=== PATIENT | female | born 1935 | race Caucasian/White ===

== ENCOUNTER 2017-11-20 11:40 | Observation (INO) ==
[2017-11-20] MEDS ORDERED: Glycopyrrolate Inj 1 MG/5 ML Syringe IV.PUSH ONE (12:00)
[2017-11-20] MEDS ORDERED: Neostigmine Inj 5 MG/5 ML Syringe IV.PUSH ONE (12:00)
[2017-11-20] MEDS ORDERED: Lidocaine PF 1% Inj 5 ML Syringe INFILTRATN ONE (12:00)
[2017-11-20] MEDS ORDERED: Metoprolol Tartrate 25 MG Tablet PO SCH (12:30)
[2017-11-20] MEDS ORDERED: Insulin NovoLIN Regular Correctional Sugar Inj SQ SCH (12:30)
[2017-11-20] MEDS ORDERED: Chlorhexidine Gluconate 2% 1 Pack (2 Cloths) TOPICAL SCH (12:30)
[2017-11-20] MEDS ORDERED: Sodium Chlor 0.9% Inj 500 ML IV.SIG SCH (13:00)
[2017-11-20] MEDS ORDERED: ceFAZolin Inj 2,000 MG in Sodium Chlor 0.9% Inj 100 ML IV.SIG SCH (13:00)
[2017-11-20] MEDS ORDERED: ceFAZolin 2 GM Premix Inj 2 GM/100 ML BAG IV.SIG ONE (13:08)
[2017-11-20] MEDS ORDERED: Dextrose 50% in Water Syringe 50 ML ONE ×2 (13:31→17:00)
[2017-11-20] MEDS ORDERED: Bupivacaine PF 0.5% Inj 30 ML Vial ONE (15:25)
--- NOTE | 2017-11-20 16:26 | XR ---
EXAM DATE: 11/20/2017 4:22 PM EDT AGE/SEX: 82 years / Female INDICATIONS: ORIF left ankle fracture. CLINICAL DATA: This is the patient's initial encounter. Patient reports that signs and symptoms have been present for 1 day and indicates a pain score of Nonresponsive. MEDICAL/SURGICAL HISTORY: Non-responsive. Non-responsive. COMPARISON: No prior exams available for comparison. FINDINGS: Multiple fluoroscopic images of the left ankle demonstrate plate and screw fixation of the lateral ma lleolus. Hardware appears intact and well-positioned. There is near-anatomic alignment. CONCLUSION: 1. Left ankle ORIF, as above. Electronically signed by: Tripp Purdy MD 11/20/2017 4:25 PM EDT
--- NOTE | 2017-11-20 16:52 | P.BOP ---
- Preoperative Diagnosis (1) Fracture of left ankle - Postoperative Diagnosis (1) Fracture of left ankle Date of procedure: 11/20/17 Procedure: 1. ORIF left ankle fracture Supine position. No tourniquet utilized 20mL 0.5% marcaine local block General anesthesia Lateral incision over distal lateral malleolus. Fracture reduced under c-arm guidance. Distal fibular locking plate placed, 6-hole, with proximal 2 screws applied percutaneously under c-arm guidance. Syndesmosis stressed and found to be stable. Fixation and reduction confirmed with c-arm. Irrigation and closure with 3-0 vicryl/2-0 nylon. Short posterior splint applied. Nonweightbearing left in splint Follow up 1 week in clinic Do not change bandage. Keep clean, dry, intact Implants: arthrex distal fibular locking plate/screws Anesthesia: GETA, local (20mL 0.5% marcaine plain) Surgeon: Julianna Nava DPM [employer] Team Member: staff Estimated blood loss (mL): 20 Pathology: none sent Condition: stable Disposition: PACU
[2017-11-20] MEDS ORDERED: fentaNYL Citrate Inj 100 MCG/2 ML Ampul ONE (17:00)
--- NOTE | 2017-11-20 17:27 | XR ---
EXAM DATE: 11/20/2017 5:20 PM EDT AGE/SEX: 82 years / Female INDICATIONS: Post-op left ankle. CLINICAL DATA: This is the patient's initial encounter. Patient reports that signs and symptoms have been present for 1 day and indicates a pain score of Nonresponsive. MEDICAL/SURGICAL HISTORY: None. None. COMPARISON: No prior exams available for comparison. FINDINGS: Status post internal fixation of the distal fibula. There is good alignment and position of the fract ure fragments. The hardware is intact. There is good alignment the mortise joint. CONCLUSION: Good position and alignment on this postoperative study. Electronically signed by: Brent Pelaez MD 11/20/2017 5:25 PM EDT
[2017-11-20] MEDS ORDERED: Acetaminophen 325 MG Tablet PO PRN (19:31)
[2017-11-20] MEDS ORDERED: Bisacodyl 10 MG Supp RECTAL PRN (19:31)
[2017-11-20] MEDS ORDERED: Dextrose 50% in Water 50 ML Vial IV.PUSH PRN (19:32)
[2017-11-20] MEDS: Heparin - SQ 10,000 UNITS/ML Vial SQ SCH (22:04)
[2017-11-20] MEDS: Senna/Docusate Sodium 8.6/50 MG Tablet PO SCH (22:04)
[2017-11-20] MEDS: Insulin NovoLOG Aspart Correctional Sugar Inj SQ SCH (22:45)
--- NOTE | 2017-11-20 22:51 | P.HPIM ---
[facility] Illness [facility] Physician: Dinora Hussein MD Chief Complaint: Left ankle pain History of Present Illness: Mrs. Centeno is an 82 y/o female with a history of DM, hyperlipidemia, arthritis, and left distal fibula fracture that occurred 2 weeks ago when she fell in her doorway who presented to [facility] on 11/20/17 for scheduled ORIF by Dr. Nava as pain was progressively worsening in her left lower extremity. Patient reports severe left ankle pain that is burning in nature and relieved with analgesics. Symptoms are worsened with movement. She reports that she will not be able to walk on d/c due to NWB in LLE and arthritis in RLE. Review of Systems All other systems reviewed negative except as [facility] - History History Provided By: Patient - Medical History Medical History: Medical History (Last Reviewed 11/21/17 @ 02:55 by JULIUS Booker) Uses walker (Acute) Fracture of left ankle (Acute) Hx of diverticulitis of colon (Acute) Neuropathy (Acute) GERD (gastroesophageal reflux disease) (Acute) Wears hearing aid in both ears (Acute) Wears eyeglasses (Acute) Diabetes High cholesterol Hx of fall Hypertension - Surgical History Surgical History: Surgical History (Last Reviewed 11/21/17 @ 02:55 by JULIUS Booker) Hx of cataract removal with insertion of prosthetic lens (Acute) Hx of cholecystectomy (Acute) History of total knee replacement (TKR) (Acute) History of coronary artery stent placement - Family History Family History: Family History (Last Updated 11/21/17 @ 02:56 by JULIUS Booker) Father Heart disease Mother Alzheimer's dementia - Tobacco History Second Hand Smoke Exposure: No Tobacco Use In Past 30 Days: No Smoking Status: Never smoker - Alcohol History How Often Do You Have a Drink Containing Alcohol: Never - Substance Use History Substance History: No History of Abuse - Travel History Recent Travel in the [place] Within the Last 8 Weeks: No Recent Travel Out of the Country Within the Last 8 Weeks: No Medications and Allergies Active Medications: Active Medications Acetaminophen (Tylenol) 650 mg PO Q4H PRN PRN Reason: Temp > 100.4 Al Hydroxide/Mg Hydroxide (Milk Of Magnesia Liq) 30 ml PO Q12H PRN PRN Reason: Mild Constipation Amlodipine Besylate (Norvasc) 5 mg PO DAILY [facility] Atorvastatin Calcium (Lipitor) 40 mg PO DAILY [facility] Bisacodyl (Dulcolax Supp) 10 mg RECTAL DAILY PRN PRN Reason: SEVERE CONSITIPATION Chlorhexidine Gluconate (Chlorhexidine 2% Cloth) 3 pack [employer] [facility] Stop: 11/23/17 12:17 Last Admin: 11/20/17 12:00 Dose: 3 pack Dextrose (D50w Vial) 50 ml IV.PUSH UNSCH PRN PRN Reason: PER HYPOGLYCEMIA PROTOCOL Escitalopram Oxalate (Lexapro) 20 mg PO DAILY [facility] Glucagon (Glucagon Inj) 1 mg OTHER PRN PRN PRN Reason: for Hypoglycemia Protocol Heparin Sodium (Porcine) (Heparin Inj) 5,000 units SQ Q12H [facility] Last Admin: 11/20/17 22:04 Dose: 5,000 units Lactated Ringer's (Lr 1000 Ml Inj) 1,000 mls @ 30 mls/hr IV.SIG .Q24H [facility] Stop: 11/23/17 12:17 Last Admin: 11/20/17 13:00 Dose: 30 mls/hr Sodium Chloride (Ns Inj) 500 mls @ 30 mls/hr IV.SIG .Q10H [facility] Stop: 11/23/17 12:17 Cefazolin Sodium 2,000 mg/ (Sodium Chloride) 120 mls @ 240 mls/hr IV.SIG [employer] [facility] Stop: 11/20/17 23:59 Last Admin: 11/20/17 13:35 Dose: 240 mls/hr Insulin Aspart (Novolog Insulin Correctional Sugar Inj) 0 unit SQ ACHS AND 3AM [facility]; Protocol Last Admin: 11/20/17 22:45 Dose: 3 unit Insulin Human Regular (Novolin R Correctional Sugar Inj) 0 units SQ [employer]TE[employer] [facility] ; Protocol Stop: 11/23/17 12:17 Lactulose (Lactulose Liq) 30 ml PO DAILY PRN PRN Reason: SEVERE CONSITIPATION Metoprolol Succinate (Toprol Xl) 50 mg PO DAILY [facility] Metoprolol Tartrate (Lopressor) 25 mg PO [employer] [facility] Stop: 11/23/17 12:17 Miscellaneous Information ([facility]) 1 each OTHER UNSCH PRN PRN Reason: SEE LABEL COMMENTS Stop: 11/21/17 17:35 Ondansetron HCl (Zofran Inj) 4 mg IV.PUSH Q6H PRN PRN Reason: NAUSEA OR VOMITING Oxycodone/Acetaminophen (Percocet 5/325 Mg) 1 tab PO Q4H PRN PRN Reason: PAIN 1-10 AND/OR FEVER >101F Last Admin: 11/20/17 22:04 Dose: 1 tab Pantoprazole Sodium (Protonix) 40 mg PO DAILY [facility] Povidone Iodine (Betadine 5% Antisepsis Kit) 1 applicatio EACH NARE [employer]TE[employer] [facility] Stop: 11/23/17 12:17 Last Admin: 11/20/17 13:05 Dose: 1 applicatio Senna/Docusate Sodium (Libia-Colace) 1 tab PO BID [facility] Last Admin: 11/20/17 22:04 Dose: 1 tab Sennosides (Senokot) 17.2 mg PO Q12H PRN PRN Reason: Moderate Constipation Allergies Allergy/AdvReac Type Severity Reaction Status Date / Time No Known Allergies Allergy Unverified 11/20/17 13:02 Home Medications Medication Instructions Recorded Confirmed Type amlodipine 5 mg PO DAILY 11/19/17 11/20/17 History atorvastatin 40 mg PO DAILY 11/19/17 11/20/17 History diclofenac sodium 75 mg PO BID 11/19/17 11/20/17 History escitalopram oxalate 20 mg PO DAILY 11/19/17 11/20/17 History hydrocodone-acetaminophen 1 tab PO Q6H PRN 11/19/17 11/20/17 History insulin aspart U-100 [Novolog 28 unit SUB-Q QAM 11/19/17 11/20/17 History U-100 Insulin aspart] insulin degludec [Tresiba 32 unit SUB-Q HS 11/19/17 11/20/17 History FlexTouch U-100] metoprolol succinate 50 mg PO DAILY 11/19/17 11/20/17 History omeprazole 40 mg PO DAILY 11/19/17 11/20/17 History Exam Vital signs: Vital Signs 11/20/17 13:00 11/20/17 16:51 11/20/17 17:00 Temperature 97.6 F 98.3 F Pulse Rate 84 86 75 Respiratory Rate 16 17 14 Blood Pressure 127/71 199/92 H 178/81 H Pulse Oximetry 97 97 99 11/20/17 17:15 11/20/17 17:20 11/20/17 17:30 Temperature Pulse Rate 70 63 Respiratory Rate 16 16 Blood Pressure 161/67 H 161/67 H Pulse Oximetry 98 96 96 11/20/17 17:46 11/20/17 18:00 11/20/17 18:50 Temperature 97.0 F L 98.3 F Pulse Rate 57 L 58 L 59 L Respiratory Rate 16 16 16 Blood Pressure 164/75 H 141/78 H 169/73 H Pulse Oximetry 94 L 92 L 11/20/17 20:30 11/20/17 21:56 Temperature 97.9 F 97.5 F L Pulse Rate 60 65 Respiratory Rate 16 18 Blood Pressure 159/88 H 185/59 H Pulse Oximetry 94 L 93 L Intake & Output 11/20/17 11/20/17 11/21/17 06:59 18:59 06:59 Intake Total 1070 / 1070 Output Total Balance 1050 / 1050 Weight 98.3 kg Intake: Oral 320 / 320 Anesthesia Amount 750 / 750 Output: Estimated Blood Loss Other: Weight On Admission 98.3 kg - Constitutional no acute distress, obese - Routine Respiratory Exam Present: CTA bilaterally. Absent: rhonchi, wheezes, crackles - Routine Cardiovascular Exam Present: RRR, S1, S2. Absent: murmur, gallop, rubs - Routine Abdominal Exam Present: soft, normoactive bowel sounds - Routine Extremities Exam Comments: LLE splinted, able to wiggle toes, sensation intact, good capillary refill. - Routine Skin Exam Present: intact, dry, warm - Routine Neurological Exam Present: alert, oriented X3 Results - Imaging Impressions Ankle X-Ray 11/20/17 00:00 CONCLUSION: 1. Left ankle ORIF, as above. Ankle X-Ray 11/20/17 00:00 CONCLUSION: Good position and alignment on this postoperative study. Caprini VTE Risk Assessment Caprini VTE Risk Assessment: Moderate/High Risk (score >= 2) Caprini Risk Assessment Model: Point Value = 1 Point Value = 2 Point Value = 3 Point Value = 5 Age 41-60 Minor surgery BMI > 25 kg/m2 Swollen legs Varicose veins or History of unexplained or recurrent spontaneous Oral contraceptives or hormone replacement Sepsis (< 1 month) Serious lung disease, including pneumonia (< 1 month) Abnormal pulmonary function Acute myocardial infarction Congestive heart failure (< 1 month) History of inflammatory bowel disease Medical patient at bed rest Age 61-74 Arthroscopic surgery Major open surgery (> 45 min) Laparoscopic surgery (> 45 min) Malignancy Confined to bed (> 72 hours) Immobilizing plaster cast Central venous access Age >= 75 History of VTE Family history of VTE Factor V Leiden Prothrombin [id number] Lupus anticoagulant Anticardiolipin antibodies Elevated serum homocysteine Heparin-induced thrombocytopenia Other congenital or acquired thrombophilia Stroke (< 1 month) Elective arthroplasty Hip, pelvis, or leg fracture Acute spinal cord injury (< 1 month) Prophylaxis Regimen: Total Risk Factor Score Risk Level Prophylaxis Regimen 0-1 Low Early ambulation 2 Moderate Order ONE of the following: *Sequential Compression Device (SCD) *Heparin 5000 units SQ BID 3-4 Higher Order ONE of the following medications: *Heparin 5000 units SQ TID *Enoxaparin/Lovenox 40 mg SQ daily (WT < 150 kg, CrCl > 30 mL/min) *Enoxaparin/Lovenox 30 mg SQ daily (WT < 150 kg, CrCl > 10-29 mL/min) *Enoxaparin/Lovenox 30 mg SQ BID (WT < 150 kg, CrCl > 30 mL/min) AND/OR *Sequential Compression Device (SCD) 5 or more Highest Order ONE of the following medications: *Heparin 5000 units SQ TID (Preferred with Epidurals) *Enoxaparin/Lovenox 40 mg SQ daily (WT < 150 kg, CrCl > 30 mL/min) *Enoxaparin/Lovenox 30 mg SQ daily (WT < 150 kg, CrCl > 10-29 mL/min) *Enoxaparin/Lovenox 30 mg SQ BID (WT < 150 kg, CrCl > 30 mL/min) AND *Sequential Compression Device (SCD) Assessment and Plan - Plan Mrs. Centeno is an 82 y/o female with a history of DM, hyperlipidemia, arthritis, and left distal fibula fracture that occurred 2 weeks ago when she fell in her doorway who presented to [facility] on 11/20/17 for scheduled ORIF by Dr. Nava as pain was progressively worsening in her left lower extremity. Left ankle fracture s/p ORIF - consult physical therapy - consult case management for assistance with discharge planning Diabetes Mellitus - Accuchecks AC and HS with low dose NovoLog sliding scale coverage - monitor trends in blood glucose readings and adjust treatments accordingly - PRN hypoglycemia protocol ordered DVT - SCDs Discussed Condition With: Patient and Dr. Webb H&P: Quality - VTE Deep Vein Thrombosis/Pulmonary Embolism Present on Admission: No
[2017-11-21 04:57] LABS: Baso % (Auto) 0.4 % (0.0-2.0); Eos # (Auto) 0.2 th/mm3 (0.0-0.4); Eos % (Auto) 2.5 % (0.0-4.0); Hematocrit 33.1 % (35.0-46.0); Lymph # (Auto) 2.3 th/mm3 (1.0-4.8); Lymph % (Auto) 23.5 % (9.0-44.0); Mean Corpuscular HGB Conc 33.1 % (32.0-36.0); Mean Corpuscular Hemoglobin 30.8 pg (27.0-34.0); Mean Platelet Volume 9.4 fL (7.0-11.0); Mono # (Auto) 0.7 th/mm3 (0.0-0.9); Mono % (Auto) 7.7 % (0.0-8.0); Neut # (Auto) 6.3 th/mm3 (1.8-7.7); Neut % (Auto) 65.9 % (16.0-70.0); Platelet Count 214 th/mm3 (150-450); Red Blood Count 3.56 mil/mm3 (4.00-5.30); Red Cell Distribution Width 14.1 % (11.6-17.2); White Blood Count 9.6 th/mm3 (4.0-11.0)
[2017-11-21 05:11] LABS: Calcium 9.5 mg/dL (8.5-10.1); Carbon Dioxide 29.5 meq/L (21.0-32.0); Potassium 3.9 meq/L (3.5-5.1)
[2017-11-21] MEDS: Insulin NovoLOG Aspart Correctional Sugar Inj SQ SCH ×5 (06:25→22:00)
[2017-11-21] MEDS: Heparin - SQ 10,000 UNITS/ML Vial SQ SCH ×2 (07:45→21:28)
[2017-11-21] MEDS: amLODIPine 5 MG Tablet PO SCH (08:55)
[2017-11-21] MEDS: Senna/Docusate Sodium 8.6/50 MG Tablet PO SCH ×2 (08:55→21:27)
--- NOTE | 2017-11-21 15:12 | P.PN ---
Subjective Interval history: Follow-up visit for left ankle fracture, status post ORIF, postop day 1 and HTN. Patient seen and examined sitting up in recliner, appears to be in no acute distress. Patient reports she is waiting to go home, states that she is having difficulty ambulating due to the fact that she cannot put weight on her left leg. She denies any fevers, chills, nausea, vomiting, diarrhea, shortness of breath or cough. Patient reports that she has not been able to void today, requesting assistance to get to the toilet. Discussed recommendations from physical therapist for rehab, patient reports that her is building a ramp at home and she would like to go home not to rehab. Physical Exam Vital signs: Vital Signs 11/20/17 16:51 11/20/17 17:00 11/20/17 17:15 Temperature 98.3 F Pulse Rate 86 75 70 Respiratory Rate 17 14 16 Blood Pressure 199/92 H 178/81 H 161/67 H Pulse Oximetry 97 99 98 11/20/17 17:20 11/20/17 17:30 11/20/17 17:46 Temperature Pulse Rate 63 57 L Respiratory Rate 16 16 Blood Pressure 161/67 H 164/75 H Pulse Oximetry 96 96 11/20/17 18:00 11/20/17 18:50 11/20/17 20:30 Temperature 97.0 F L 98.3 F 97.9 F Pulse Rate 58 L 59 L 60 Respiratory Rate 16 16 16 Blood Pressure 141/78 H 169/73 H 159/88 H Pulse Oximetry 94 L 92 L 94 L 11/20/17 21:56 11/21/17 00:00 11/21/17 04:00 Temperature 97.5 F L 97.3 F L 97.2 F L Pulse Rate 65 62 64 Respiratory Rate 18 18 18 Blood Pressure 185/59 H 141/65 H 186/77 H Pulse Oximetry 93 L 93 L 94 L Intake & Output 11/20/17 11/21/17 11/21/17 18:59 06:59 18:59 Intake Total 1070 / 1070 Output Total Balance 1050 / 1050 Weight 98.3 kg 107.6 kg Intake: Oral 320 / 320 Anesthesia Amount 750 / 750 Output: Estimated Blood Loss Other: Weight On Admission 98.3 kg Narrative: GENERAL: Well-nourished, well-developed female in no acute distress. SKIN: Warm and dry. HEAD: Atraumatic. Normocephalic. EYES: Pupils equal and round. No scleral icterus. No injection or drainage. ENT: No nasal bleeding or discharge. Mucous membranes pink and moist. NECK: Trachea midline. No JVD. CARDIOVASCULAR: Regular rate and rhythm. RESPIRATORY: No accessory muscle use. Clear to auscultation. Breath sounds equal bilaterally. GASTROINTESTINAL: Abdomen soft, non-tender, nondistended. Positive bowel sounds. MUSCULOSKELETAL: Extremities without clubbing, cyanosis, or edema. No obvious deformities. Left ankle with Shakeel wrap in place, trace edema to distal foot and toes noted, capillary refill less than 3 seconds,+ movement and sensation. NEUROLOGICAL: Awake and alert oriented 3. No obvious cranial nerve deficits. Motor grossly within normal limits. Normal speech. PSYCHIATRIC: Appropriate mood and affect; insight and judgment normal. Results - Labs CBC & Chem 7: 11/21/17 04:06 11/21/17 04:06 Laboratory Results - last 24 hr 11/20/17 11/20/17 11/20/17 16:55 17:32 18:50 WBC RBC Hgb Hct MCV MCH MCHC RDW Plt Count MPV Neut % (Auto) Lymph % (Auto) [place] % (Auto) Eos % (Auto) Baso % (Auto) Neut # (Auto) Lymph # (Auto) [place] # (Auto) Eos # (Auto) Baso # (Auto) WBC Differential Differential Comment Sodium Potassium Chloride Carbon Dioxide Anion Gap BUN Creatinine Estimated GFR POC Glucose 62 L 124 H 210 H Random Glucose Calcium 11/20/17 11/21/17 11/21/17 22:23 04:06 04:06 WBC 9.6 RBC 3.56 L Hgb 11.0 L Hct 33.1 L MCV 93.0 MCH 30.8 MCHC 33.1 RDW 14.1 Plt Count 214 MPV 9.4 Neut % (Auto) 65.9 Lymph % (Auto) 23.5 [place] % (Auto) 7.7 Eos % (Auto) 2.5 Baso % (Auto) 0.4 Neut # (Auto) 6.3 Lymph # (Auto) 2.3 [place] # (Auto) 0.7 Eos # (Auto) 0.2 Baso # (Auto) 0.0 WBC Differential . Differential Comment Auto diff final Sodium 142 Potassium 3.9 Chloride 105 Carbon Dioxide 29.5 Anion Gap 8 BUN 24 H Creatinine 1.31 H Estimated GFR 39 L POC Glucose 245 H Random Glucose 120 H Calcium 9.5 11/21/17 11/21/17 11/21/17 04:36 08:26 11:46 WBC RBC Hgb Hct MCV MCH MCHC RDW Plt Count MPV Neut % (Auto) Lymph % (Auto) [place] % (Auto) Eos % (Auto) Baso % (Auto) Neut # (Auto) Lymph # (Auto) [place] # (Auto) Eos # (Auto) Baso # (Auto) WBC Differential Differential Comment Sodium Potassium Chloride Carbon Dioxide Anion Gap BUN Creatinine Estimated GFR POC Glucose 123 H 164 H 231 H Random Glucose Calcium - Imaging Impressions Ankle X-Ray 11/20/17 00:00 CONCLUSION: 1. Left ankle ORIF, as above. Ankle X-Ray 11/20/17 00:00 CONCLUSION: Good position and alignment on this postoperative study. Assessment and Plan - Plan Mrs. Centeno is an 82 y/o female with a history of DM, hyperlipidemia, arthritis, and left distal fibula fracture that occurred 2 weeks ago when she fell in her doorway who presented to [facility] on 11/20/17 for scheduled ORIF by Dr. Nava as pain was progressively worsening in her left lower extremity. Left ankle fracture s/p ORIF - consult physical therapy - consult case management for assistance with discharge planning home versus rehab -Pain control with Percocet, bowel regimen Diabetes Mellitus - Accuchecks AC and HS with low dose NovoLog sliding scale coverage -Blood sugars moderately controlled - PRN hypoglycemia protocol ordered Hypertension -Continue home medications, BP moderately controlled PRN clonidine Urinary retention -Encourage voiding, bladder scan and straight cath per protocol DVT - SCDs Discussed Condition With: Discussed with patient, RN, casework manager. Discharge Planning: Patient will need surgical clearance, discharge home versus rehab.
--- NOTE | 2017-11-21 16:24 | P.DIET ---
Nutritional Evaluation Type of nutrition evaluation: initial (Marilyn Screen) Assessment Assessment: Marilyn screen for elective sx on pts 80 and older received. Pt is at 169% of her IBW. On a 1800ADA diet, eating 75% or greater. She is not at high nutritional risk. Consult RD if needed.
--- NOTE | 2017-11-21 22:02 | P.PNPOD ---
Subjective Interval history: s/p ORIF Left ankle fracture 11/20/17 Dr Nava Review of Systems All other systems reviewed negative except as stated in HPI Physical Exam Vital signs: Vital Signs 11/21/17 00:00 11/21/17 04:00 11/21/17 08:00 Temperature 97.3 F L 97.2 F L 99.2 F Pulse Rate 62 64 85 Respiratory Rate 18 18 16 Blood Pressure 141/65 H 186/77 H 174/80 H Pulse Oximetry 93 L 94 L 94 L Intake & Output 11/21/17 11/21/17 11/22/17 06:59 18:59 06:59 Weight 107.6 kg Other: # Voids 1 Narrative: Neurovascularly intact left lower extremity. Splint in place left ankle. Medications and Allergies Active Medications: Active Medications Acetaminophen (Tylenol) 650 mg PO Q4H PRN PRN Reason: Temp > 100.4 Al Hydroxide/Mg Hydroxide (Milk Of Magnemmanuel Liq) 30 ml PO Q12H PRN PRN Reason: Mild Constipation Amlodipine Besylate (Norvasc) 5 mg PO DAILY [facility] Last Admin: 11/21/17 08:55 Dose: 5 mg Atorvastatin Calcium (Lipitor) 40 mg PO DAILY [facility] Last Admin: 11/21/17 08:50 Dose: 40 mg Bisacodyl (Dulcolax Supp) 10 mg RECTAL DAILY PRN PRN Reason: SEVERE CONSITIPATION Chlorhexidine Gluconate (Chlorhexidine 2% Cloth) 3 pack TOPICAL HVAC MANAGER [facility] Stop: 11/23/17 12:17 Last Admin: 11/20/17 12:00 Dose: 3 pack Clonidine HCl (Catapres) 0.1 mg PO Q6H PRN PRN Reason: SBP> 170, DBP> 100; if HR > 60 Dextrose (D50w Vial) 50 ml IV.PUSH UNSCH PRN PRN Reason: PER HYPOGLYCEMIA PROTOCOL Escitalopram Oxalate (Lexapro) 20 mg PO DAILY [facility] Last Admin: 11/21/17 08:55 Dose: 20 mg Glucagon (Glucagon Inj) 1 mg OTHER PRN PRN PRN Reason: for Hypoglycemia Protocol Heparin Sodium (Porcine) (Heparin Inj) 5,000 units SQ Q12H [facility] Last Admin: 11/21/17 21:28 Dose: 5,000 units Lactated Ringer's (Lr 1000 Ml Inj) 1,000 mls @ 30 mls/hr IV.SIG .Q24H [facility] Stop: 11/23/17 12:17 Last Admin: 11/21/17 12:30 Dose: Not Given Sodium Chloride (Ns Inj) 500 mls @ 30 mls/hr IV.SIG .Q10H [facility] Stop: 11/23/17 12:17 Insulin Aspart (Novolog Insulin Correctional Sugar Inj) 0 unit SQ ACHS AND 3AM [facility]; Protocol Last Admin: 11/21/17 17:00 Dose: 5 unit Insulin Human Regular (Novolin R Correctional Sugar Inj) 0 units SQ HVAC MANAGER [facility] ; Protocol Stop: 11/23/17 12:17 Lactulose (Lactulose Liq) 30 ml PO DAILY PRN PRN Reason: SEVERE CONSITIPATION Metoprolol Succinate (Toprol Xl) 50 mg PO DAILY [facility] Last Admin: 11/21/17 08:50 Dose: 50 mg Metoprolol Tartrate (Lopressor) 25 mg PO [employer] MANAGER [facility] Stop: 11/23/17 12:17 Ondansetron HCl (Zofran Inj) 4 mg IV.PUSH Q6H PRN PRN Reason: NAUSEA OR VOMITING Oxycodone/Acetaminophen (Percocet 5/325 Mg) 1 tab PO Q4H PRN PRN Reason: PAIN 1-10 AND/OR FEVER >101F Last Admin: 11/21/17 21:27 Dose: 1 tab Pantoprazole Sodium (Protonix) 40 mg PO DAILY [facility] Last Admin: 11/21/17 08:50 Dose: 40 mg Povidone Iodine (Betadine 5% Antisepsis Kit) 1 applicatio EACH NARE HVAC MANAGER [facility] Stop: 11/23/17 12:17 Last Admin: 11/20/17 13:05 Dose: 1 applicatio Senna/Docusate Sodium (Libia-Colace) 1 tab PO BID [facility] Last Admin: 11/21/17 21:27 Dose: 1 tab Sennosides (Senokot) 17.2 mg PO Q12H PRN PRN Reason: Moderate Constipation Allergies Allergy/AdvReac Type Severity Reaction Status Date / Time No Known Allergies Allergy Unverified 11/20/17 13:02 Home Medications Medication Instructions Recorded Confirmed Type amlodipine 5 mg PO DAILY 11/19/17 11/20/17 History atorvastatin 40 mg PO DAILY 11/19/17 11/20/17 History diclofenac sodium 75 mg PO BID 11/19/17 11/20/17 History escitalopram oxalate 20 mg PO DAILY 11/19/17 11/20/17 History hydrocodone-acetaminophen 1 tab PO Q6H PRN 11/19/17 11/20/17 History insulin aspart U-100 [Novolog 28 unit SUB-Q QAM 11/19/17 11/20/17 History U-100 Insulin aspart] insulin degludec [Tresiba 32 unit SUB-Q HS 11/19/17 11/20/17 History FlexTouch U-100] metoprolol succinate 50 mg PO DAILY 11/19/17 11/20/17 History omeprazole 40 mg PO DAILY 11/19/17 11/20/17 History Results - Labs CBC & Chem 7: 11/21/17 04:06 11/21/17 04:06 Laboratory Results - last 24 hr 11/20/17 11/21/17 11/21/17 22:23 04:06 04:06 WBC 9.6 RBC 3.56 L Hgb 11.0 L Hct 33.1 L MCV 93.0 MCH 30.8 MCHC 33.1 RDW 14.1 Plt Count 214 MPV 9.4 Neut % (Auto) 65.9 Lymph % (Auto) 23.5 [place] % (Auto) 7.7 Eos % (Auto) 2.5 Baso % (Auto) 0.4 Neut # (Auto) 6.3 Lymph # (Auto) 2.3 [place] # (Auto) 0.7 Eos # (Auto) 0.2 Baso # (Auto) 0.0 WBC Differential . Differential Comment Auto diff final Sodium 142 Potassium 3.9 Chloride 105 Carbon Dioxide 29.5 Anion Gap 8 BUN 24 H Creatinine 1.31 H Estimated GFR 39 L POC Glucose 245 H Random Glucose 120 H Calcium 9.5 11/21/17 11/21/17 11/21/17 04:36 08:26 11:46 WBC RBC Hgb Hct MCV MCH MCHC RDW Plt Count MPV Neut % (Auto) Lymph % (Auto) [place] % (Auto) Eos % (Auto) Baso % (Auto) Neut # (Auto) Lymph # (Auto) [place] # (Auto) Eos # (Auto) Baso # (Auto) WBC Differential Differential Comment Sodium Potassium Chloride Carbon Dioxide Anion Gap BUN Creatinine Estimated GFR POC Glucose 123 H 164 H 231 H Random Glucose Calcium 11/21/17 11/21/17 17:22 21:25 WBC RBC Hgb Hct MCV MCH MCHC RDW Plt Count MPV Neut % (Auto) Lymph % (Auto) [place] % (Auto) Eos % (Auto) Baso % (Auto) Neut # (Auto) Lymph # (Auto) [place] # (Auto) Eos # (Auto) Baso # (Auto) WBC Differential Differential Comment Sodium Potassium Chloride Carbon Dioxide Anion Gap BUN Creatinine Estimated GFR POC Glucose 260 H 266 H Random Glucose Calcium - Imaging XR L ankle shows reduced fracture and fixation in place. Assessment and Plan - Assessment (1) Fracture of left ankle Code(s): S82.892A - Other fracture of left lower leg, initial encounter for closed fracture Status: Acute Plan: Recommend rehab placement upon discharge, [place] 9th floor, if possible. Discussed with patient and she is agreeable to rehab. Continue strict nonweightbearing, DVT prophylaxis, and pain control. Plan to change bandage in 1 week Keep splint clean, dry, intact.
[2017-11-22] MEDS: Insulin NovoLOG Aspart Correctional Sugar Inj SQ SCH ×5 (03:23→21:04)
[2017-11-22] MEDS: Senna/Docusate Sodium 8.6/50 MG Tablet PO SCH ×2 (09:40→20:48)
[2017-11-22] MEDS: amLODIPine 5 MG Tablet PO SCH (09:40)
[2017-11-22] MEDS: Heparin - SQ 10,000 UNITS/ML Vial SQ SCH ×2 (09:40→20:49)
--- NOTE | 2017-11-22 10:05 | P.PN ---
Subjective Interval history: Follow-up visit for left ankle fracture, status post ORIF and HTN. Patient is seen and examined resting in bed comfortably, appears to be in no acute distress. She denies any fevers, chills, nausea, vomiting, diarrhea, cough, shortness of breath or chest pain. Patient reports some left ankle pain, does not remember when his last time she had pain medication for this. She also reports that she is voiding without any dysuria or discomfort. Physical Exam Vital signs: Vital Signs 11/21/17 20:00 11/22/17 00:00 11/22/17 04:00 Temperature 99 F 99.0 F 98.5 F Pulse Rate 86 77 74 Respiratory Rate 16 18 18 Blood Pressure 169/71 H 181/79 H 178/75 H Pulse Oximetry 95 94 L 94 L 11/22/17 08:00 Temperature 98.2 F Pulse Rate 67 Respiratory Rate 12 Blood Pressure 181/81 H Pulse Oximetry 90 L Intake & Output 11/21/17 11/22/17 11/22/17 18:59 06:59 18:59 Intake Total 240 / 240 Balance 240 / 240 Weight 105.2 kg Intake: Oral 240 / 240 Other: # Voids 1 0 Narrative: GENERAL: Well-nourished, well-developed female in no acute distress. SKIN: Warm and dry. HEAD: Atraumatic. EYES: Pupils equal and round. No injection or drainage. ENT: No nasal bleeding or discharge. Mucous membranes pink and moist. NECK: Trachea midline. No JVD. CARDIOVASCULAR: Regular rate and rhythm. RESPIRATORY: No accessory muscle use. Clear to auscultation. Breath sounds equal bilaterally. GASTROINTESTINAL: Abdomen soft, non-tender, nondistended. Positive bowel sounds. MUSCULOSKELETAL: Extremities without clubbing, cyanosis, or edema. No obvious deformities. Left ankle with Shakeel wrap in place, trace edema to distal foot and toes noted, capillary refill less than 3 seconds,+ movement and sensation. NEUROLOGICAL: Awake and alert oriented 3. No obvious cranial nerve deficits. Motor grossly within normal limits. Normal speech. PSYCHIATRIC: Appropriate mood and affect; insight and judgment normal. Results - Labs CBC & Chem 7: 11/21/17 04:06 11/21/17 04:06 Laboratory Results - last 24 hr 11/21/17 11/21/17 11/21/17 11:46 17:22 21:25 POC Glucose 231 H 260 H 266 H 11/22/17 11/22/17 03:19 06:14 POC Glucose 270 H 171 H Assessment and Plan - Plan Mrs. Centeno is an 82 y/o female with a history of DM, hyperlipidemia, arthritis, and left distal fibula fracture that occurred 2 weeks ago when she fell in her doorway who presented to [facility] on 11/20/17 for scheduled ORIF by Dr. Nava as pain was progressively worsening in her left lower extremity. Left ankle fracture s/p ORIF - consult physical therapy - consult case management for assistance with discharge planning. -Pain control with Percocet, bowel regimen Diabetes Mellitus - Accuchecks AC and HS with low dose NovoLog sliding scale coverage -Blood sugars moderately controlled - PRN hypoglycemia protocol ordered Hypertension -BP continues to be elevated, increase Norvasc to 10mg dialy PRN clonidine Urinary retention -Encourage voiding, bladder scan and straight cath per protocol DVT - SCDs Discussed Condition With: Patient, RN, family, CM Discharge Planning: Case management to assist with discharge to [facility] versus [facility] rehab
[2017-11-22] MEDS: amLODIPine 10 MG Tablet PO SCH (11:59)
--- NOTE | 2017-11-22 13:09 | P.PNPOD ---
Physical Exam Vital signs: Vital Signs 11/21/17 20:00 11/22/17 00:00 11/22/17 04:00 Temperature 99 F 99.0 F 98.5 F Pulse Rate 86 77 74 Respiratory Rate 16 18 18 Blood Pressure 169/71 H 181/79 H 178/75 H Pulse Oximetry 95 94 L 94 L 11/22/17 08:00 11/22/17 12:00 Temperature 98.2 F 98 F Pulse Rate 67 62 Respiratory Rate 12 13 Blood Pressure 181/81 H 147/63 H Pulse Oximetry 90 L 98 Intake & Output 11/21/17 11/22/17 11/22/17 18:59 06:59 18:59 Intake Total 240 / 240 Balance 240 / 240 Weight 105.2 kg Intake: Oral 240 / 240 Other: # Voids 1 0 Narrative: splint/dressing clean, dry, intact left foot/ankle. neurovascularly intact LLE Medications and Allergies Active Medications: Active Medications Acetaminophen (Tylenol) 650 mg PO Q4H PRN PRN Reason: Temp > 100.4 Last Admin: 11/22/17 09:39 Dose: 650 mg Al Hydroxide/Mg Hydroxide (Milk Of Magnemmanuel Liq) 30 ml PO Q12H PRN PRN Reason: Mild Constipation Amlodipine Besylate (Norvasc) 10 mg PO DAILY [facility] Last Admin: 11/22/17 11:59 Dose: 10 mg Atorvastatin Calcium (Lipitor) 40 mg PO DAILY [facility] Last Admin: 11/22/17 09:40 Dose: 40 mg Bisacodyl (Dulcolax Supp) 10 mg RECTAL DAILY PRN PRN Reason: SEVERE CONSITIPATION Chlorhexidine Gluconate (Chlorhexidine 2% Cloth) 3 pack TOPICAL RECORDING ARTIST [facility] Stop: 11/23/17 12:17 Last Admin: 11/20/17 12:00 Dose: 3 pack Clonidine HCl (Catapres) 0.1 mg PO Q6H PRN PRN Reason: SBP> 170, DBP> 100; if HR > 60 Last Admin: 11/22/17 02:07 Dose: 0.1 mg Dextrose (D50w Vial) 50 ml IV.PUSH UNSCH PRN PRN Reason: PER HYPOGLYCEMIA PROTOCOL Escitalopram Oxalate (Lexapro) 20 mg PO DAILY [facility] Last Admin: 11/22/17 09:40 Dose: 20 mg Glucagon (Glucagon Inj) 1 mg OTHER PRN PRN PRN Reason: for Hypoglycemia Protocol Heparin Sodium (Porcine) (Heparin Inj) 5,000 units SQ Q12H [facility] Last Admin: 11/22/17 09:40 Dose: 5,000 units Lactated Ringer's (Lr 1000 Ml Inj) 1,000 mls @ 30 mls/hr IV.SIG .Q24H [facility] Stop: 11/23/17 12:17 Last Infusion: 11/22/17 08:07 Dose: 30 mls/hr Sodium Chloride (Ns Inj) 500 mls @ 30 mls/hr IV.SIG .Q10H [facility] Stop: 11/23/17 12:17 Insulin Aspart (Novolog Insulin Correctional Sugar Inj) 0 unit SQ ACHS AND 3AM [facility]; Protocol Last Admin: 11/22/17 11:59 Dose: 9 unit Insulin Human Regular (Novolin R Correctional Sugar Inj) 0 units SQ RECORDING ARTIST [facility] ; Protocol Stop: 11/23/17 12:17 Lactulose (Lactulose Liq) 30 ml PO DAILY PRN PRN Reason: SEVERE CONSITIPATION Metoprolol Succinate (Toprol Xl) 50 mg PO DAILY [facility] Last Admin: 11/22/17 09:40 Dose: 50 mg Metoprolol Tartrate (Lopressor) 25 mg PO RECORDING ARTIST [facility] Stop: 11/23/17 12:17 Ondansetron HCl (Zofran Inj) 4 mg IV.PUSH Q6H PRN PRN Reason: NAUSEA OR VOMITING Oxycodone/Acetaminophen (Percocet 5/325 Mg) 1 tab PO Q4H PRN PRN Reason: PAIN 1-10 AND/OR FEVER >101F Last Admin: 11/21/17 21:27 Dose: 1 tab Pantoprazole Sodium (Protonix) 40 mg PO DAILY [facility] Last Admin: 11/22/17 09:40 Dose: 40 mg Povidone Iodine (Betadine 5% Antisepsis Kit) 1 applicatio EACH NARE RECORDING ARTIST [facility] Stop: 11/23/17 12:17 Last Admin: 11/20/17 13:05 Dose: 1 applicatio Senna/Docusate Sodium (Libia-Colace) 1 tab PO BID [facility] Last Admin: 11/22/17 09:40 Dose: 1 tab Sennosides (Senokot) 17.2 mg PO Q12H PRN PRN Reason: Moderate Constipation Allergies Allergy/AdvReac Type Severity Reaction Status Date / Time No Known Allergies Allergy Unverified 11/20/17 13:02 Home Medications Medication Instructions Recorded Confirmed Type amlodipine 5 mg PO DAILY 11/19/17 11/20/17 History atorvastatin 40 mg PO DAILY 11/19/17 11/20/17 History diclofenac sodium 75 mg PO BID 11/19/17 11/20/17 History escitalopram oxalate 20 mg PO DAILY 11/19/17 11/20/17 History hydrocodone-acetaminophen 1 tab PO Q6H PRN 11/19/17 11/20/17 History insulin aspart U-100 [Novolog 28 unit SUB-Q QAM 11/19/17 11/20/17 History U-100 Insulin aspart] insulin degludec [Tresiba 32 unit SUB-Q HS 11/19/17 11/20/17 History FlexTouch U-100] metoprolol succinate 50 mg PO DAILY 11/19/17 11/20/17 History omeprazole 40 mg PO DAILY 11/19/17 11/20/17 History Results - Labs CBC & Chem 7: 11/21/17 04:06 11/21/17 04:06 Laboratory Results - last 24 hr 11/21/17 11/21/17 11/22/17 17:22 21:25 03:19 POC Glucose 260 H 266 H 270 H 11/22/17 11/22/17 06:14 11:56 POC Glucose 171 H 369 H Assessment and Plan - Assessment (1) Fracture of left ankle Code(s): S82.892A - Other fracture of left lower leg, initial encounter for closed fracture Status: Acute Plan: Recommend rehab placement upon discharge Possibly to [facility] today. If still here tomorrow, will change bandage before d/ c. If not, ok to discharge and keep splint/dressing clean, dry, intact and will have patient come in to office later next week for dressing change. Dressing does not need to be changed in rehab Continue strict nonweightbearing, DVT prophylaxis, and pain control. Keep splint clean, dry, intact.
--- NOTE | 2017-11-22 17:42 | ECG ---
Date Performed: 11/20/2017 Time Performed: 12:25:22 PTAGE: 82 years EKG: Sinus rhythm WITH FIRST DEGREE AV BLOCK POSSIBLE INFERIOR MYOCARDIAL INFARCTION , PROBABLY OLD ABNORMAL ECG PREVIOUS TRACING : 04/12/2005 05.50 DOCTOR: Marquita Leblanc Interpretating Date/Time 11/22/2017 17:36:31
--- NOTE | 2017-11-22 18:20 | MP ---
cc: Julianna Nava TAMMY DATE OF OPERATION: 11/20/2017 INDICATIONS: The patient presented to my clinic after referral from her primary care doctor complaining of a left ankle pain. She was noted to have a fracture of the lateral malleolus and was referred to me for consultation. She had fallen and misstepped over a step the week prior and had significant pain and was unable to bear weight. She had been in severe pain and was found to have a displaced lateral malleolar fracture. I discussed with the patient the risks, benefits, and potential complications of surgery, and she agreed to move forward with open reduction with internal fixation of left ankle fracture. She was then seen in preop holding by myself, nursing staff, and anesthesia, where the correct patient, side, and site were all confirmed to be correct and the left ankle. She was then prepped and draped in normal sterile fashion. After timeouts were performed per facility protocol, attention was directed to the left lower extremity, was prepped and draped, followed by attention directed to the lateral aspect of the lateral malleolus centrally. C-arm was utilized in order to localize the fracture, and a small incision was made laterally over the distal aspect of the lateral malleolus using C-arm guidance. The tissue was freed very carefully, and the distal fibula locking plate was placed with 6 holes and was slid up under the periosteum alongside the distal fibula. Using C-arm guidance, screws were applied percutaneously through the distal 2 screws, and plate and screw fixation was placed after the fracture was reduced using C-arm guidance. Following placement of stable fixation, the syndesmosis was stressed under fluoroscopy and found to be stable. Final images were taken, confirming adequate fixation and reduction of the fracture with C-arm, followed by irrigation and closure with 3-0 Vicryl and 2-0 nylon suture, followed by application of a short posterior splint. The patient tolerated the procedure and anesthesia well without complications and was taken back to PACU with vital signs stable and vascular status intact to the left lower extremity. She will be nonweightbearing to the left lower extremity in splint and follow up in 1 week in clinic for a dressing change. She was noted to be in PACU to have difficulty ambulating and was admitted to observation while awaiting placement in a rehabilitation facility in order to be able to comply with nonweightbearing, and so she will follow up with me in 1 week and stay in rehabilitation for 2-3 weeks until sutures are removed most likely or until she gains the strength enough to be able to comply with nonweightbearing. SHORT OPERATIVE NOTE SURGEON: Julianna Nava DPM ENGRAVER JEWELRY: Staff. PREOPERATIVE DIAGNOSIS: Left ankle fracture. POSTOPERATIVE DIAGNOSIS: Left ankle fracture. PROCEDURE PERFORMED: Open reduction with internal fixation, left ankle fracture. PROPHYLAXIS: IV Ancef 2 g preoperatively. ESTIMATED BLOOD LOSS: Minimal, 20 mL. ANESTHESIA: General endotracheal anesthesia plus local block consisting of 20 mL of 0.5% Marcaine plain. HEMOSTASIS: No tourniquet utilized. COMPLICATIONS: None. CONDITION: Stable to PACU. DISPOSITION: Nonweightbearing. Left lower extremity in splint. To keep clean, dry and intact. To follow up in clinic in 1 week. TAMMY Delvalle/germaine , 05:01 PM , 05:08 PM
[2017-11-23] MEDS: Insulin NovoLOG Aspart Correctional Sugar Inj SQ SCH ×5 (04:04→20:28)
[2017-11-23] MEDS: Heparin - SQ 10,000 UNITS/ML Vial SQ SCH ×2 (08:01→19:22)
[2017-11-23] MEDS: Senna/Docusate Sodium 8.6/50 MG Tablet PO SCH ×2 (09:31→20:30)
[2017-11-23] MEDS: amLODIPine 10 MG Tablet PO SCH (09:31)
--- NOTE | 2017-11-23 10:53 | P.PN ---
Subjective Interval history: Follow-up visit for left ankle fracture, status post ORIF and HTN. Patient is seen and examined sitting up in chair and in no acute distress. She denies any fevers, chills, nausea, vomiting, diarrhea, cough, shortness of breath or chest pain. She voices no acute concerns or complaints at the moment. Physical Exam Vital signs: Vital Signs 11/22/17 12:00 11/22/17 16:00 11/22/17 20:00 Temperature 98 F 97.4 F L 98.2 F Pulse Rate 62 52 L 62 Respiratory Rate 13 13 16 Blood Pressure 147/63 H 163/70 H 150/67 H Pulse Oximetry 98 95 95 11/23/17 00:00 11/23/17 04:00 11/23/17 06:40 Temperature 98.3 F 98.0 F Pulse Rate 63 60 Respiratory Rate 17 17 17 Blood Pressure 135/68 138/70 Pulse Oximetry 94 L 94 L 11/23/17 08:00 Temperature 98.4 F Pulse Rate 64 Respiratory Rate 19 Blood Pressure 171/74 H Pulse Oximetry 92 L Intake & Output 11/22/17 11/23/17 11/23/17 18:59 06:59 18:59 Intake Total 400 / 400 Balance 400 / 400 Weight 105 kg Intake: Oral 400 / 400 Other: # Voids 2 2 Date of Last Bowel Movement 11/21/17 # Bowel Movements 0 Narrative: GENERAL: Well-nourished, well-developed female in no acute distress. SKIN: Warm and dry. HEAD: Atraumatic. EYES: Pupils equal and round. No injection or drainage. ENT: No nasal bleeding or discharge. Mucous membranes pink and moist. NECK: Trachea midline. CARDIOVASCULAR: Regular rate and rhythm. RESPIRATORY: No accessory muscle use. Clear to auscultation. Breath sounds equal bilaterally. GASTROINTESTINAL: Abdomen soft, non-tender, nondistended. Positive bowel sounds. MUSCULOSKELETAL: Extremities without clubbing, cyanosis, or edema. No obvious deformities. Left ankle with Shakeel wrap in place, trace edema to distal foot and toes noted, capillary refill less than 3 seconds,+ movement and sensation. NEUROLOGICAL: Awake and alert oriented 3. No obvious cranial nerve deficits. Motor grossly within normal limits. Normal speech. PSYCHIATRIC: Appropriate mood and affect; insight and judgment normal. Results - Labs CBC & Chem 7: 11/21/17 04:06 11/21/17 04:06 Laboratory Results - last 24 hr 11/22/17 11/22/17 11/22/17 11:56 17:46 19:59 POC Glucose 369 H 195 H 208 H 11/23/17 11/23/17 03:57 07:47 POC Glucose 186 H 188 H Assessment and Plan - Plan Mrs. Centeno is an 82 y/o female with a history of DM, hyperlipidemia, arthritis, and left distal fibula fracture that occurred 2 weeks ago when she fell in her doorway who presented to [facility] on 11/20/17 for scheduled ORIF by Dr. Nava as pain was progressively worsening in her left lower extremity. Left ankle fracture s/p ORIF - consult physical therapy - consult case management for assistance with discharge planning. -Pain control with Percocet, bowel regimen Diabetes Mellitus - Accuchecks AC and HS with low dose NovoLog sliding scale coverage -Blood sugars elevated, start Levemir - PRN hypoglycemia protocol ordered Hypertension -BP continues to be elevated, continue Norvasc 10 mg daily, metoprolol, add hydralazine 10 mg 3 times daily PRN clonidine DVT - SCDs Discussed Condition With: Patient and operations support specialist Planning: Case management to assist with discharge to [facility] rehab
[2017-11-23 12:19] VITALS: RESP 18
--- NOTE | 2017-11-23 13:38 | P.PNPOD ---
Physical Exam Vital signs: Vital Signs 11/22/17 16:00 11/22/17 20:00 11/23/17 00:00 Temperature 97.4 F L 98.2 F 98.3 F Pulse Rate 52 L 62 63 Respiratory Rate 13 16 17 Blood Pressure 163/70 H 150/67 H 135/68 Pulse Oximetry 95 95 94 L 11/23/17 04:00 11/23/17 06:40 11/23/17 08:00 Temperature 98.0 F 98.4 F Pulse Rate 60 64 Respiratory Rate 17 17 19 Blood Pressure 138/70 171/74 H Pulse Oximetry 94 L 92 L 11/23/17 12:00 Temperature 98.0 F Pulse Rate 64 Respiratory Rate 18 Blood Pressure 151/68 H Pulse Oximetry 99 Intake & Output 11/22/17 11/23/17 11/23/17 18:59 06:59 18:59 Intake Total 400 / 400 Balance 400 / 400 Weight 105 kg Intake: Oral 400 / 400 Other: # Voids 2 2 Date of Last Bowel Movement 11/21/17 # Bowel Movements 0 Medications and Allergies Active Medications: Active Medications Acetaminophen (Tylenol) 650 mg PO Q4H PRN PRN Reason: Temp > 100.4 Last Admin: 11/22/17 09:39 Dose: 650 mg Al Hydroxide/Mg Hydroxide (Milk Of Magnesia Liq) 30 ml PO Q12H PRN PRN Reason: Mild Constipation Amlodipine Besylate (Norvasc) 10 mg PO DAILY [facility] Last Admin: 11/23/17 09:31 Dose: 10 mg Atorvastatin Calcium (Lipitor) 40 mg PO DAILY [facility] Last Admin: 11/23/17 09:31 Dose: 40 mg Bisacodyl (Dulcolax Supp) 10 mg RECTAL DAILY PRN PRN Reason: SEVERE CONSITIPATION Clonidine HCl (Catapres) 0.1 mg PO Q6H PRN PRN Reason: SBP> 170, DBP> 100; if HR > 60 Last Admin: 11/22/17 02:07 Dose: 0.1 mg Dextrose (D50w Vial) 50 ml IV.PUSH UNSCH PRN PRN Reason: PER HYPOGLYCEMIA PROTOCOL Escitalopram Oxalate (Lexapro) 20 mg PO DAILY [facility] Last Admin: 11/23/17 09:31 Dose: 20 mg Glucagon (Glucagon Inj) 1 mg OTHER PRN PRN PRN Reason: for Hypoglycemia Protocol Heparin Sodium (Porcine) (Heparin Inj) 5,000 units SQ Q12H [facility] Last Admin: 11/23/17 08:01 Dose: 5,000 units Insulin Aspart (Novolog Insulin Correctional Sugar Inj) 0 unit SQ ACHS AND 3AM JALEEL; Protocol Last Admin: 11/23/17 09:30 Dose: 2 unit Lactulose (Lactulose Liq) 30 ml PO DAILY PRN PRN Reason: SEVERE CONSITIPATION Metoprolol Succinate (Toprol Xl) 50 mg PO DAILY [facility] Last Admin: 11/23/17 09:31 Dose: 50 mg Ondansetron HCl (Zofran Inj) 4 mg IV.PUSH Q6H PRN PRN Reason: NAUSEA OR VOMITING Oxycodone/Acetaminophen (Percocet 5/325 Mg) 1 tab PO Q4H PRN PRN Reason: PAIN 1-10 AND/OR FEVER >101F Last Admin: 11/22/17 20:48 Dose: 1 tab Pantoprazole Sodium (Protonix) 40 mg PO DAILY [facility] Last Admin: 11/23/17 09:31 Dose: 40 mg Senna/Docusate Sodium (Libia-Colace) 1 tab PO BID [facility] Last Admin: 11/23/17 09:31 Dose: 1 tab Sennosides (Senokot) 17.2 mg PO Q12H PRN PRN Reason: Moderate Constipation Allergies Allergy/AdvReac Type Severity Reaction Status Date / Time No Known Allergies Allergy Unverified 11/20/17 13:02 Home Medications Medication Instructions Recorded Confirmed Type amlodipine 5 mg PO DAILY 11/19/17 11/20/17 History atorvastatin 40 mg PO DAILY 11/19/17 11/20/17 History diclofenac sodium 75 mg PO BID 11/19/17 11/20/17 History escitalopram oxalate 20 mg PO DAILY 11/19/17 11/20/17 History hydrocodone-acetaminophen 1 tab PO Q6H PRN 11/19/17 11/20/17 History insulin aspart U-100 [Novolog 28 unit SUB-Q QAM 11/19/17 11/20/17 History U-100 Insulin aspart] insulin degludec [Tresiba 32 unit SUB-Q HS 11/19/17 11/20/17 History FlexTouch U-100] metoprolol succinate 50 mg PO DAILY 11/19/17 11/20/17 History omeprazole 40 mg PO DAILY 11/19/17 11/20/17 History Results - Labs CBC & Chem 7: 11/21/17 04:06 11/21/17 04:06 Laboratory Results - last 24 hr 11/22/17 11/22/17 11/23/17 17:46 19:59 03:57 POC Glucose 195 H 208 H 186 H 11/23/17 11/23/17 07:47 12:45 POC Glucose 188 H 205 H Assessment and Plan - Assessment (1) Fracture of left ankle Code(s): S82.892A - Other fracture of left lower leg, initial encounter for closed fracture Status: Acute Plan: Recommend rehab placement upon discharge Patient will get appointment for later this week for dressing change. Continue strict nonweightbearing, DVT prophylaxis, and pain control. Keep splint clean, dry, intact.
[2017-11-23] MEDS: hydrALAZINE 10 MG Tablet PO SCH (18:06)
[2017-11-23] MEDS: Insulin Detemir Inj 1,000 UNIT/10 ML Vial SQ SCH (20:28)
[2017-11-24] MEDS: Insulin NovoLOG Aspart Correctional Sugar Inj SQ SCH ×4 (04:15→17:45)
[2017-11-24] MEDS: amLODIPine 10 MG Tablet PO SCH (09:10)
[2017-11-24] MEDS: hydrALAZINE 10 MG Tablet PO SCH ×3 (09:11→17:45)
[2017-11-24] MEDS: Heparin - SQ 10,000 UNITS/ML Vial SQ SCH (09:11)
[2017-11-24] MEDS: Senna/Docusate Sodium 8.6/50 MG Tablet PO SCH (09:11)
--- NOTE | 2017-11-24 09:19 | P.PN ---
Subjective Interval history: Follow-up visit for left ankle fracture, status post ORIF and HTN. Patient seen and examined resting in bed comfortably in no acute distress. She denies any fevers, chills, nausea, vomiting, diarrhea, cough, shortness of breath or chest pain. She denies any dysuria, endorses constipation, denies abdominal pain or discomfort. Right ankle pain is tolerable, pain medication does help with relief. Physical Exam Vital signs: Vital Signs 11/23/17 12:00 11/23/17 14:53 11/23/17 20:00 Temperature 98.0 F 98.3 F 98.3 F Pulse Rate 64 70 66 Respiratory Rate 18 18 18 Blood Pressure 151/68 H 160/69 H 198/81 H Pulse Oximetry 99 95 96 11/24/17 00:00 11/24/17 08:00 Temperature 98.8 F 98.2 F Pulse Rate 54 L 58 L Respiratory Rate 18 18 Blood Pressure 132/63 143/65 H Pulse Oximetry 93 L 93 L Intake & Output 11/23/17 11/24/17 11/24/17 18:59 06:59 18:59 Intake Total 840 / 840 Balance 840 / 840 Weight 105 kg Intake: Oral 840 / 840 Other: # Voids 1 2 Date of Last Bowel Movement 11/21/17 11/23/17 Narrative: GENERAL: Well-nourished, well-developed female in no acute distress. SKIN: Warm and dry. HEAD: Atraumatic. EYES: Pupils equal and round. No injection or drainage. ENT: No nasal bleeding or discharge. Mucous membranes pink and moist. NECK: Trachea midline. CARDIOVASCULAR: Regular rate and rhythm. RESPIRATORY: No accessory muscle use. Clear to auscultation. Breath sounds equal bilaterally. GASTROINTESTINAL: Abdomen soft, non-tender, nondistended. Positive bowel sounds. MUSCULOSKELETAL: Extremities without clubbing, cyanosis, or edema. No obvious deformities. Left ankle with Shakeel wrap in place, trace edema to distal foot and toes noted, capillary refill less than 3 seconds,+ movement and sensation. NEUROLOGICAL: Awake and alert oriented 3. No obvious cranial nerve deficits. Motor grossly within normal limits. Normal speech. PSYCHIATRIC: Appropriate mood and affect; insight and judgment normal. Results - Labs CBC & Chem 7: 11/21/17 04:06 11/21/17 04:06 Laboratory Results - last 24 hr 11/23/17 11/23/17 11/23/17 12:45 16:54 20:10 POC Glucose 205 H 201 H 221 H 11/24/17 11/24/17 04:08 08:16 POC Glucose 191 H 160 H Assessment and Plan - Plan Mrs. Centeno is an 82 y/o female with a history of DM, hyperlipidemia, arthritis, and left distal fibula fracture that occurred 2 weeks ago when she fell in her doorway who presented to [facility] on 11/20/17 for scheduled ORIF by Dr. Nava as pain was progressively worsening in her left lower extremity. Left ankle fracture s/p ORIF - consult physical therapy - consult case management for assistance with discharge planning. -Pain control with Percocet, bowel regimen. Lactulose today to help with BM. Diabetes Mellitus - Accuchecks AC and HS with low dose NovoLog sliding scale coverage - Levemir 15 units twice daily -Blood sugars with improvement this morning. - PRN hypoglycemia protocol ordered Hypertension -Norvasc 10 mg daily, metoprolol, add hydralazine 10 mg 3 times daily -BP improved overnight and this morning. PRN clonidine DVT - SCDs Discussed Condition With: Patient, RN, case preparer and liner. Discharge Planning: Case management to assist with discharge to [facility] versus [facility] rehab, pending approval.
[2017-11-24] MEDS: Insulin Detemir Inj 1,000 UNIT/10 ML Vial SQ SCH (12:43)
[2017-11-24 16:22] VITALS: BP 147/67; PULSE 67; TEMP 98; O2SAT 93
--- NOTE | 2017-11-24 16:36 | P.DS ---
Date of admission: 11/20/17 20:42 Primary care physician: Dinora Hussein MD Brief History from admission: Mrs. Centeno is an 82 y/o female with a history of DM, hyperlipidemia, arthritis, and left distal fibula fracture that occurred 2 weeks ago when she fell in her doorway who presented to [facility] on 11/20/17 for scheduled ORIF by Dr. Nava as pain was progressively worsening in her left lower extremity. Patient reports severe left ankle pain that is burning in nature and relieved with analgesics. Symptoms are worsened with movement. She reports that she will not be able to walk on d/c due to NWB in LLE and arthritis in RLE. DS: Medications - Discharge Medications Prescriptions: amlodipine [Norvasc] 10 mg PO DAILY #30 tab hydrocodone-acetaminophen 1 tab PO Q6H PRN #12 tab PRN Reason: Pain 2-10 insulin aspart U-100 [Novolog U-100 Insulin aspart] 0 unit SUB-Q ACHS AND 3AM # 15 ml insulin detemir U-100 [Levemir U-100 Insulin] 15 unit SUB-Q BID #15 ml DS: Summary Hospital Course: 82 y/o female with a history of DM, hyperlipidemia, arthritis, and left distal fibula fracture who presented to [facility] on 11/20/17 for scheduled ORIF by Dr. Nava. Underwent open reduction and internal fixation of left ankle fracture on 11/22. Following surgery patient was seen and evaluated by physical therapy who recommended physical therapy at rehab center. During her hospitalization her blood pressure medications were adjusted due to hypertension. Patient has been cleared by podiatry standpoint and is now ready for discharge. Case management has arranged discharge to nursing home facility inpatient is agreeable. Patient seen and examined this morning resting in bed comfortably in no acute distress. She denies any fevers, chills, nausea, vomiting, diarrhea, cough, shortness of breath or chest pain. She denies any dysuria, endorses constipation, denies abdominal pain or discomfort. Right ankle pain is tolerable, pain medication does help with relief. Later in the afternoon patient did manage to have a bowel movement. Hard copy of Rx for pain medication and written by podiatry. Printed Rx placed and showed been by myself. - Time Spent with Patient Total time spent providing and/or coordinating discharge services: Greater than 30 minutes - Quality: VTE Deep Vein Thrombosis/Pulmonary Embolism Present on Admission: No Exam Vital signs: Vital Signs 11/23/17 20:00 11/24/17 00:00 11/24/17 08:00 Temperature 98.3 F 98.8 F 98.2 F Pulse Rate 66 54 L 58 L Respiratory Rate 18 18 18 Blood Pressure 198/81 H 132/63 143/65 H Pulse Oximetry 96 93 L 93 L 11/24/17 12:00 Temperature 97.6 F Pulse Rate 74 Respiratory Rate 18 Blood Pressure 123/60 Pulse Oximetry 95 Intake & Output 11/23/17 11/24/17 11/24/17 18:59 06:59 18:59 Intake Total 840 / 840 Balance 840 / 840 Weight 105 kg Intake: Oral 840 / 840 Other: # Voids 1 2 Date of Last Bowel Movement 11/21/17 11/23/17 11/20/17 Narrative: GENERAL: Well-nourished, well-developed female in no acute distress. SKIN: Warm and dry. HEAD: Atraumatic. EYES: Pupils equal and round. No injection or drainage. ENT: No nasal bleeding or discharge. Mucous membranes pink and moist. NECK: Trachea midline. CARDIOVASCULAR: Regular rate and rhythm. RESPIRATORY: No accessory muscle use. Clear to auscultation. Breath sounds equal bilaterally. GASTROINTESTINAL: Abdomen soft, non-tender, nondistended. Positive bowel sounds. MUSCULOSKELETAL: Extremities without clubbing, cyanosis, or edema. No obvious deformities. Left ankle with Shakeel wrap in place, trace edema to distal foot and toes noted, capillary refill less than 3 seconds,+ movement and sensation. NEUROLOGICAL: Awake and alert oriented 3. No obvious cranial nerve deficits. Motor grossly within normal limits. Normal speech. PSYCHIATRIC: Appropriate mood and affect; insight and judgment normal. Results Procedures completed during hospitalization: Open reduction and internal fixation of left ankle fracture 11/22 Labs on day of discharge: Labs from last 24 hours 11/24/17 11/24/17 11/24/17 11:43 08:16 04:08 POC Glucose 236 H 160 H 191 H 11/23/17 11/23/17 20:10 16:54 POC Glucose 221 H 201 H - Impressions ITS Impressions Ankle X-Ray 11/20/17 00:00 CONCLUSION: Good position and alignment on this postoperative study. Discharge Plan - Discharge Disposition Patient Disposition: 03 Discharge to SNF - Discharge Condition Condition: Fair - Discharge Order Discharge Orders: Discharge Order (Routine); Ordered 11/24/17 Ordered By: Gigi Carroll - Physicians Team Primary Care Provider: Dinora Hussein Attending Provider: Sandeep Denise Other Providers: Sunita Webb MD ; Eleazar Bush ; [facility] ; [facility] - Rxs /Orders / Referrals /Forms Prescriptions: New amlodipine [Norvasc] 10 mg Tablet 10 mg PO DAILY Qty: 30 RF: 0 insulin aspart U-100 [Novolog U-100 Insulin aspart] 100 unit/mL Solution 0 unit Sub-Q ACHS AND 3AM Qty: 15 RF: 0 insulin detemir U-100 [Levemir U-100 Insulin] 100 unit/mL Solution 15 unit Sub-Q BID Qty: 15 RF: 0 Continue atorvastatin 40 mg Tablet 40 mg PO DAILY escitalopram oxalate 20 mg Tablet 20 mg PO DAILY insulin degludec [Tresiba FlexTouch U-100] 100 unit/mL (3 mL) Insulin Pen 32 unit SUB-Q HS metoprolol succinate 50 mg Tablet Extended Release 24 Hr 50 mg PO DAILY omeprazole 40 mg Capsule,Delayed Release(Dr/Ec) 40 mg PO DAILY Discontinued amlodipine 5 mg Tablet 5 mg PO DAILY diclofenac sodium 75 mg Tablet,Delayed Release (Dr/Ec) 75 mg PO BID hydrocodone-acetaminophen 5-325 mg Tablet 1 tab PO Q6H PRN (Reason: Pain) insulin aspart U-100 [Novolog U-100 Insulin aspart] 100 unit/mL Solution 28 unit SUB-Q QAM Referrals: Dinora Hussein MD [Primary Care Provider] - See Instructions Julianna Nava DPM [Physician] - - Discharge Instructions Patient Printed Instructions: Hydrocodone/Acetaminophen (By mouth), Meal Planning with Diabetes Exchanges (DC), ORIF of an Ankle Fracture (DC), Splint Care (ED), Splint Care (DC), R.I.C.E. Treatment (GEN), Non Weight Bearing Activity (DC) Additional Instructions: Your Health Problems: Goals to Promote Your Health: * To prevent worsening of your condition * To maintain your health at the optimal level Directions to Meet Your Goals: * Take your medications as prescribed * Follow your dietary instruction * Follow activity as directed * Keep your appointments as scheduled * Take your immunizations and boosters as scheduled * If your symptoms worsen call your PCP * If no PCP go to Urgent Care or Emergency Room Smoking is dangerous to your health. Avoid second hand smoke. You may reach the 24-hour crisis hotline for domestic abuse at 8-956-471- 1951.You are being given a prescription for Mcintosh, Please take medications as prescribed. Do not drink alcohol or drive vehicle at this time. DO NOT Change dressing until you see the physician. Please follow up a diabetic diet. Non-weight bearing left foot/ankle in splint. Please call to confirm your follow up appointment for next week. If you do not have one, please call and make an appointment. - Post Discharge Care Plan Care Plan Goals: Your Health Problems: Goals to Promote Your Health: * To prevent worsening of your condition * To maintain your health at the optimal level Directions to Meet Your Goals: * Take your medications as prescribed * Follow your dietary instruction * Follow activity as directed * Keep your appointments as scheduled * Take your immunizations and boosters as scheduled * If your symptoms worsen call your PCP * If no PCP go to Urgent Care or Emergency Room Smoking is dangerous to your health. Avoid second hand smoke. You may reach the 24-hour crisis hotline for domestic abuse at .
== END 2017-11-24 17:47 ==
LOC: EDBD → N06 11:40 → HSDC 11:40
PROVIDERS: ADMIT Hospitalist; ATTEND Hospitalist
PROC: ORIFANK (2017-11-20 14:55)